=== PATIENT | male | born 1945 | race Caucasian/White ===

== ENCOUNTER 2021-05-31 07:20 | Day surgery (SDC) | payer MEDICARE ==
[~2021-05-31] VITALS: Ht 172.7 cm; Wt 88.5 kg
[2021-05-31 08:19] LABS: HEMOGLOBIN 15.1 gm/dl (14.0-17.5); RED BLOOD COUNT 4.71 M/UL (4.20-5.50); WHITE BLOOD COUNT 10.9 K/UL (4.5-11.0)
[2021-05-31 08:53] LABS: BUN/CREATININE RATIO 13 (0-10)
[2021-05-31] MEDS ORDERED: ATORVASTATIN CA40 MG PO (09:01)
[2021-05-31] MEDS ORDERED: MELATONIN10 M2 PO (09:01)
[2021-05-31] MEDS ORDERED: DICLOFENAC SOD100 MG PO (09:02)
[2021-05-31] MEDS ORDERED: GLUCOPHAGE 500500 MG PO (09:03)
[2021-05-31] MEDS ORDERED: NAPROXEN500 MG PO (09:03)
[2021-05-31] MEDS ORDERED: LINZESS290 MCG PO (09:03)
[2021-05-31] MEDS ORDERED: FLOMAX 0.4 MG0.4 MG PO (09:04)
[2021-05-31] MEDS ORDERED: PLAVIX75 MG PO (09:04)
[2021-05-31] MEDS ORDERED: SEROQUEL100 MG PO (09:04)
[2021-05-31] MEDS ORDERED: TRIAMTERENE-HC1 EAC4 PO (09:05)
[2021-05-31] MEDS ORDERED: ZOFRAN4 MG PO (14:01)
[2021-05-31] MEDS ORDERED: ENDOCET 7.5-321 EACH PO (14:01)
[2021-06-01 03:00] LABS: WHITE BLOOD COUNT 10.9 K/UL (4.5-11.0)
[2021-06-01 03:01] LABS: RED BLOOD COUNT 3.94 M/UL (4.20-5.50)
[2021-06-01 03:12] LABS: BUN/CREATININE RATIO 17 (0-10)
== END 2021-06-01 12:13 | disposition home or self-care (01) ==
LOC: OR 07:20 → M/S 17:44 → OR 06-01 12:13
PROVIDERS: Orthopaedic Surgery
DX: S42.92XA Fracture of left shoulder girdle, part unspecified, initial encounter for closed fracture (principal); I10 Essential (primary) hypertension; E11.9 Type 2 diabetes mellitus without complications; K21.9 Gastro-esophageal reflux disease without esophagitis; N40.0 Benign prostatic hyperplasia without lower urinary tract symptoms; K58.9 Irritable bowel syndrome, unspecified; E78.5 Hyperlipidemia, unspecified; E87.6 Hypokalemia; J98.11 Atelectasis; R94.31 Abnormal electrocardiogram [ECG] [EKG]; Z79.84 Long term (current) use of oral hypoglycemic drugs; Z79.899 Other long term (current) drug therapy; Z20.822 Contact with and (suspected) exposure to COVID-19; Z86.73 Personal history of transient ischemic attack (TIA), and cerebral infarction without residual deficits; W19.XXXA Unspecified fall, initial encounter
CPT/HCPCS: 36415; 71045; 73020; 80048; 82962; 83036; 83735; 85027; 93005; 97162; 97165; 97530; 97535; C1713; C1776; J0690; J1100; J2250; J2270; J2370; J2704; J2710; J2795; J3370; J7030; J7120; U0002